=== PATIENT | female | born 1975 | race Two or more races ===

== ENCOUNTER 2021-09-03 10:59 | Outpatient (CLI) | payer OTHER | END 2021-09-03 11:08 | disposition home or self-care (01) | LOC: RAD 10:59 | PROVIDERS: ATTEND Neurological Surgery | DX: M54.50 Low back pain, unspecified (principal); M43.28 Fusion of spine, sacral and sacrococcygeal region; M43.22 Fusion of spine, cervical region | CPT/HCPCS: 72148 ==